=== PATIENT | female | born 1980 ===

== ENCOUNTER 2018-05-06 20:15 | Inpatient (IN) | payer SELFPAY ==
--- NOTE | 2018-05-06 20:47 | C.PDOC ---
History Of Present Illness Pt was transferred here from [facility] for admission under Dr. Knapp's service for possible cholecystectomy. Time Seen by Provider: 05/06/18 20:39 Chief Complaint (Nursing): Abdominal Pain History Per: Patient Current Symptoms Are (Timing): Still Present Severity: Moderate Location Of Pain/Discomfort: RUQ Quality Of Discomfort: "Pain" Alleviating Factors: None Additional History Per: Prior Records Past Medical History Reviewed: Historical Data, Nursing Documentation, Vital Signs Vital Signs: Last Vital Signs Temp 98.9 F 05/06/18 20:27 Pulse 56 L 05/06/18 20:27 Resp 20 05/06/18 20:27 BP 131/74 05/06/18 20:27 Pulse Ox 98 05/06/18 20:27 - Medical History PMH: No Chronic Diseases Surgical History: - [facility] Procedures BILAT TUBAL DIVISION NEC (11/20/13) LOW CERVICAL (11/20/13) OTHER LOCAL DESTRUC SKIN (11/20/13) Family History: States: Unknown Family Hx - Social History Hx Alcohol Use: No Hx Substance Use: No - Immunization History Hx Tetanus Toxoid Vaccination: No Hx Influenza Vaccination: No Hx Pneumococcal Vaccination: No Review Of Systems Cardiovascular: Negative for: Chest Pain Respiratory: Negative for: Shortness of Breath Gastrointestinal: Positive for: Abdominal Pain Musculoskeletal: Negative for: Neck Pain Skin: Negative for: Rash Neurological: Negative for: Weakness Physical Exam - Physical Exam Appears: Non-toxic, No Acute Distress Skin: Normal Color, Warm, Dry Head: Atraumatic, Normacephalic Eye(s): bilateral: PERRL, EOMI Neck: Normal ROM, Supple Cardiovascular: Rhythm Regular Respiratory: Normal Breath Sounds, No Accessory Muscle Use Gastrointestinal/Abdominal: Tenderness Extremity: Normal ROM Neurological/Psych: Oriented x3, Normal Cognition, Normal Motor ED Course And Treatment O2 Sat by Pulse Oximetry: 98 Pulse Ox Interpretation: Normal Disposition - Disposition Disposition: HOSPITALIZED Disposition Time: 20:46 Condition: FAIR - Clinical Impression Clinical Impression: Acute cholecystitis Decision To Admit - Pt Status Changed To: Hospital Disposition Of: Inpatient - Admit Certification Admit to Inpatient:: After my assessment, the patient will require hospitalization for at least two midnights. This is because of the severity of symptoms shown, intensity of services needed, and/or the medical risk in this patient being treated as an outpatient. - InPatient: Physician Admission Certification:: Surgery - . Bed Request Type: Regular Admitting Physician: Ragini Knapp Patient Diagnosis: Acute cholecystitis
[2018-05-06] MEDS ORDERED: Morphine 4 MG/ML VIAL IVP PRN (21:27)
[2018-05-06] MEDS ORDERED: Lactated Ringer's 1,000 ML ONE (22:37)
[2018-05-06] MEDS ORDERED: Piperacillin/Tazobact 3.375 gm 100 ML IVPB ONE (22:38)
[2018-05-06] MEDS: Piperacillin/Tazobact 3.375 GM in Sodium Chloride 100 ML IVPB SCH (22:48)
[2018-05-06] MEDS: Lactated Ringer's 1,000 ML IV SCH (22:48)
[2018-05-07] MEDS: Piperacillin/Tazobact 3.375 GM in Sodium Chloride 100 ML IVPB SCH ×3 (03:43→16:23)
[2018-05-07 07:00] LABS: BASO % 0.5 % (0.0-2.0); EOS # 0.1 K/uL (0.0-0.7); EOS % 1.7 % (0.0-4.0); HEMOGLOBIN 12.5 g/dL (11.0-16.0); LYMPH # 1.2 K/uL (1.0-4.3); LYMPH % 23.8 % (20.0-40.0); MEAN CELL VOLUME 90.3 fL (81.0-99.0); MEAN CORPUSCULAR HEMOGLOBIN 31.3 pg (27.0-31.0); MEAN CORPUSCULAR HGB CONC 34.7 g/dL (33.0-37.0); MEAN PLATELET VOLUME 7.3 fL (7.2-11.7); MONO # 0.5 K/uL (0.0-0.8); MONO % 8.9 % (0.0-10.0); NEUT # 3.3 K/uL (1.8-7.0); NEUT % 65.1 % (50.0-75.0); RED CELL DISTRIBUTION WIDTH 12.8 % (11.5-14.5); WHITE BLOOD COUNT 5.1 K/uL (4.8-10.8)
[2018-05-07] MEDS: Lactated Ringer's 1,000 ML IV SCH ×2 (07:49→17:45)
--- NOTE | 2018-05-07 08:17 | CP.PCM.CON ---
History of Present Illness - History of Present Illness History of Present Illness: 37F w/no significant PMHx reports to [facility] ED as a transfer from [facility] ED. Patient is here for acute cholecystitis. At time of examination patient complained of RUQ/epigastric pain. Patient also complained of nausesa/ vomiting. Patient denies chest pain, shortness of breath, dysuria. PMH: Denies PSH: x 2 All: NKDA SH: Denies ETOH, tobacco or illicit drug use FH: Non contributory PMD: None Review of Systems - Review of Systems Review of Systems: 12 pt ROS unremarkable except as stated in HPI Past Patient History - Past Medical History & Family History Past Medical History?: No - Past Social History Smoking Status: Never Smoked - CARDIAC Hx Hypertension: No - PULMONARY Hx Tuberculosis: No - NEUROLOGICAL Hx Seizures: No - HEENT Hx HEENT Problems: No - RENAL Hx Chronic Kidney Disease: No - ENDOCRINE/METABOLIC Hx Endocrine Disorders: No - HEMATOLOGICAL/ONCOLOGICAL Hx Human Immunodeficiency Virus (HIV): No - INTEGUMENTARY Hx Dermatological Problems: No - MUSCULOSKELETAL/RHEUMATOLOGICAL Hx Musculoskeletal Disorders: No Hx Falls: No - GASTROINTESTINAL Hx Gastrointestinal Disorders: No - GENITOURINARY/GYNECOLOGICAL Hx Sexually Transmitted Disorders: No - PSYCHIATRIC Hx Substance Use: No - SURGICAL HISTORY Hx Surgeries: Yes Hx Section: Yes - ANESTHESIA Hx Anesthesia: Yes Hx Anesthesia Reactions: No Hx Malignant Hyperthermia: No Meds Allergies/Adverse Reactions: Allergies Allergy/AdvReac Type Severity Reaction Status Date / Time No Known Allergies Allergy Verified 08/26/17 11:24 - Medications Medications: Current Medications Acetaminophen (Tylenol 325mg Tab) 650 mg PO Q6H PRN PRN Reason: Headache Last Admin: 05/07/18 06:46 Dose: 650 mg Piperacillin Sod/Tazobactam (Sod 3.375 gm/ Sodium Chloride) 100 mls @ 200 mls/ hr IVPB Q6H SHANNON PRN Reason: Protocol Last Admin: 05/07/18 03:43 Dose: 200 mls/hr Lactated Ringer's (Lactated Ringer's) 1,000 mls @ 100 mls/hr IV .Q10H SHANNON Last Admin: 05/07/18 07:49 Dose: Not Given Morphine Sulfate (Morphine) 4 mg IVP Q4 PRN PRN Reason: Pain, moderate (4-7) Ondansetron HCl (Zofran Inj) 4 mg IVP Q6H PRN PRN Reason: nausea/vomiting Last Admin: 05/06/18 22:48 Dose: 4 mg Pneumococcal Polyvalent Vaccine (Pneumovax 23 Vaccine) 0.5 ml SC .ONCE ONE Stop: 05/09/18 10:01 Physical Exam - Constitutional Appears: No Acute Distress - Head Exam Head Exam: NORMOCEPHALIC - Eye Exam Eye Exam: EOMI, Normal appearance - ENT Exam ENT Exam: Mucous Membranes Moist - Respiratory Exam Respiratory Exam: NORMAL BREATHING PATTERN - Cardiovascular Exam Cardiovascular Exam: +S1, +S2 - GI/Abdominal Exam GI & Abdominal Exam: Soft, Tenderness. absent: Distended, Firm, Guarding, Rebound, Rigid - Neurological Exam Neurological exam: Alert, Oriented x3 - Psychiatric Exam Psychiatric exam: Normal Mood - Skin Skin Exam: Dry, Intact, Warm Results - Vital Signs Recent Vital Signs: Last Vital Signs Temp 98.1 F 05/07/18 07:08 Pulse 48 L 05/07/18 07:08 Resp 20 05/07/18 07:08 BP 110/74 05/07/18 07:08 Pulse Ox 98 05/07/18 07:08 - Labs Result Diagrams: 05/07/18 06:46 Labs: Laboratory Results - last 24 hr 05/07/18 05/07/18 06:46 07:48 WBC 5.1 RBC 4.00 Hgb 12.5 Hct 36.1 MCV 90.3 MCH 31.3 H MCHC 34.7 RDW 12.8 Plt Count 204 MPV 7.3 Neut % (Auto) 65.1 Lymph % (Auto) 23.8 [place] % (Auto) 8.9 Eos % (Auto) 1.7 Baso % (Auto) 0.5 Neut # (Auto) 3.3 Lymph # (Auto) 1.2 [place] # (Auto) 0.5 Eos # (Auto) 0.1 Baso # (Auto) 0.0 Urine HCG, Qual Negative Assessment & Plan - Assessment and Plan (Free Text) Assessment: 37F with acute cholecystitis Plan: NPO IVF ABx Analgesic/Anti-emetic SCDs For OR this AM (05/07) for laparoscopic cholecystectomy D/w Dr. Ra De La Rosa PGY3
[2018-05-07 08:18] LABS: ALB/GLOB RATIO 1.1 (1.0-2.1); ALBUMIN 3.6 g/dL (3.5-5.0); ALT/SGPT 480 U/L (9-52); AST/SGOT 331 U/L (14-36); BLOOD UREA NITROGEN 9 mg/dL (7-17); CALCIUM 8.4 mg/dl (8.6-10.4); GFR AFRICAN-AMERICAN > 60; GFR NON-AFRICAN AMERICAN > 60
[2018-05-07] MEDS ORDERED: Midazolam 2 MG/2 ML VIAL ONE (10:00)
[2018-05-07] MEDS ORDERED: Propofol 10 mg/ml Inj (20 ML) ONE (10:00)
[2018-05-07] MEDS ORDERED: Rocuronium 10 mg/ml (5 ml) ONE ×2 (10:05→11:01)
[2018-05-07] MEDS ORDERED: Neostigmine Methylsulfate 3mg/3ml Syringe IV ONE (11:16)
--- NOTE | 2018-05-07 11:34 | PCM.SURG1 ---
Surgeon's Initial Post Op Note - Surgeon's Notes Surgeon: Ra Tilting Head Band Sawyer: Gordo PGY4 Type of Anesthesia: General Endo Pre-Operative Diagnosis: Cholecystitis Operative Findings: Acutely inflamed gallbladder Post-Operative Diagnosis: same Operation Performed: laparoscopic cholecystectomy Specimen/Specimens Removed: gallbladder Estimated Blood Loss: EBL {In ML}: 10 Blood Products Given: N/A Drains Used: No Drains Post-Op Condition: Good Date of Surgery/Procedure: 05/07/18 Time of Surgery/Procedure: 11:34
[2018-05-07] MEDS ORDERED: Morphine 4 MG/ML VIAL IVP PRN (12:15)
[2018-05-07 13:02] VITALS: PULSE 56; RESP 20; O2SAT 97
[2018-05-07 16:58] VITALS: BP 114/68; TEMP 98.6
[2018-05-07] MEDS ORDERED: Pneumococcal 23-Valent Vaccine SC ONE (18:00)
--- NOTE | 2018-05-07 23:45 | OP ---
PROCEDURE DATE: 05/06/2018 SURGEON: Ragini Knapp MD [employer]: Glenn Caro DO ANESTHESIA: General, Dr. Olvera. PREOPERATIVE DIAGNOSIS: Cholecystitis. POSTOPERATIVE DIAGNOSIS: Cholecystitis. PROCEDURE: Laparoscopic cholecystectomy. DESCRIPTION OF OPERATION: With the patient in the supine position, under adequate general anesthesia, the abdomen was prepped and draped in the usual sterile manner. Veress needle puncture was performed at the umbilicus with insufflation to 15 cm water pressure of CO2, and a 10 m laparoscopic trocar was inserted via an infraumbilical incision. Under direct vision, additional trocars were inserted in the epigastrium and right costal margin. The patient was noted to have a band of Vxth-Yrrp-Wilmuw type adhesion from the liver to the area of the peritoneal surface of the abdominal wall and these adhesions were sharply lysed. The gallbladder was visualized. There was adherent omentum and it appeared mildly edematous; however, it was not distended. The gallbladder fundus was grasped and elevated. Omental adhesions were taken down to identify the infundibulum which was grasped and retracted laterally. The cystic duct was identified and dissected. The cystic duct was cleared down towards the junction of the common bile duct and the cystic duct was triply clipped and divided. Small stones were milked back into the gallbladder prior to clipping the cystic duct, and the cystic artery was then identified, anterior and posterior branches were cleared, and it was triply clipped and divided. The gallbladder was dissected free of the liver bed using electrocautery. The liver bed was edematous consistent with recent acute inflammation. The liver bed was inspected for hemostasis and the dissection was completed. The gallbladder was placed in a specimen retrieval bag and removed via the umbilical port site. The right upper quadrant was irrigated and suctioned. The pneumoperitoneum was released and the trocars removed. The umbilical port site was closed with a [id number] fascial suture of 0 Vicryl. All incisions were closed with 4-0 Monocryl subcuticular sutures and Steri-Strips. Dry sterile dressings were applied. The patient tolerated the procedure well and transferred to recovery room in stable condition. Estimated blood loss for the procedure was 10 mL. Ragini Knapp MD [facility] # [id number]
[2018-05-09] MEDS ORDERED: Pneumococcal 23-Valent Vaccine SC ONE (10:00)
--- NOTE | 2018-05-10 15:11 | CARD ---
APPROVED REPORT Date of service: 05/07/2018 EKG Measurement Heart [id number] <Conclusion> Sinus bradycardia Otherwise normal ECG
== END 2018-05-07 18:50 | disposition home or self-care (01) | DRG 419 ==
LOC: C.ER 20:15 → C.9E 20:47 → C.3T 23:02
PROVIDERS: ADMIT Specialist; ATTEND Specialist
PROC: 0FT44ZZ Resection of Gallbladder, Percutaneous Endoscopic Approach (ICD-10-PCS; principal; 2018-05-06)
DX: K80.12 Calculus of gallbladder with acute and chronic cholecystitis without obstruction (principal); Z98.891 History of uterine scar from previous surgery